=== PATIENT | male | born 1945 | race Caucasian/White ===

== ENCOUNTER 2016-08-23 11:08 | Inpatient (IN) ==
[2016-08-23] MEDS ORDERED: DILTIAZEM 25 MG/5 ML VIAL IV ONE (11:32)
[2016-08-23] MEDS ORDERED: DILTIAZEM 125 MG/25 ML VIAL IV ONE (11:37)
--- NOTE | 2016-08-23 11:42 | Emergency Department Note ---
SOB HPI - General Chief Complaint: Shortness of Breath/Dyspnea Stated Complaint: Shortness of breath Time Seen by Provider: 08/23/16 11:32 Source: patient Mode of arrival: ambulatory Limitations: no limitations - History of Present Illness Patient mainly felt palpitations the last 3 days, he states he hiked quite a bit. 3 days ago and his heart was racing. It. He is trying to sleep and his heart would not slow down. In fact, he felt palpitations for last 3 days in a row. States she's had tachycardia. Ever since was 17 years old, no chest pain per se a little bit shortness of breath this morning when he was trying to push a scaffolding up onto the roof. No fevers, no chills, no cough, no nausea, vomiting, no ankle swelling. His been well otherwise. MD Complaint: shortness of breath - Related Data Home Medications Medication Instructions Recorded Confirmed Aspirin [Adult Low Dose Aspirin EC] 81 mg PO DAILY 08/23/16 08/23/16 Allergies Allergy/AdvReac Type Severity Reaction Status Date / Time No Known Drug Allergies Allergy Verified 08/23/16 11:15 Review of Systems All systems ED: reviewed and negative except as stated. Constitutional: Denies: fever, chills Past Medical History - Past Medical History Source: nursing notes reviewed Medical history: Reports: atrial fibrillation, hypertension Family history: Reports: no significant family history - Social History smoking status: Never smoker Alcohol use: Reports: Rarely Drug use: Reports: none Physical Exam 70-year-old male, awake and alert, in no immediate distress, in fact, he is quite jovial, happy, denies chest pain, has had no shortness of breath, his O2 sats are fine and head and neck exam was normal exam his TMs are normal. Pupils equal, reactive. Neck is supple without JVD. Chest was clear breath sounds. Heart irregular rhythm and rate of between 140 and 150. Lungs are clear otherwise. Chest wall is nontender. Abdomen soft, nontender. Extremities with arthritic deformities but no ankle swelling and is moving all fours appropriately nourished neuro exam is grossly intact. Skin is normal. Color is good, his O2 sats are normal, mentation is appropriate. - General Limitations: no limitations General appearance: alert, in no apparent distress - Head Head exam: atraumatic, normocephalic - Eye Eye exam: Present: normal appearance, PERRL. Absent: scleral icterus - ENT ENT exam: normal exam, normal oropharynx, mucous membranes moist, TM's normal bilaterally Course Vital Signs Temperature 98 F 08/23/16 11:08 Pulse Rate 143 H 08/23/16 11:08 Respiratory Rate 20 08/23/16 11:08 Blood Pressure 146/121 08/23/16 11:08 Pulse Oximetry (%) 98 08/23/16 11:08 Temperature 98 F 08/23/16 11:08 Pulse Rate 74 08/23/16 13:14 Respiratory Rate 17 08/23/16 13:14 Blood Pressure 101/80 08/23/16 13:11 Pulse Oximetry (%) 100 08/23/16 13:14 Shortness of Breath/Dyspnea - [facility] Narrative Medical decision making narrative: Labs reviewed, his proBNP was markedly elevated, thus the shortness of breath. He was started on oxygen, his tachycardia treated with diltiazem and his rate did come down, but he was still tachycardic to 100 on the drip. Thus, he will be admitted for atrial flutter, RVR with CHF. Discussed with Dr. Carranza - Lab Data Lab results reviewed: Yes I reviewed the patient's lab results. Result diagrams: 08/23/16 11:48 08/23/16 11:48 Lab Results 08/23/16 08/23/16 08/23/16 Range/Units 11:48 11:48 11:48 WBC 6.4 (4.5-11.0) K/mcL RBC 4.37 L (4.50-5.90) M/mcL Hgb 14.4 (13.5-16.5) g/dL Hct 42.1 (41.0-55.0) % MCV 96.3 (80.0-100.0) fL MCH 33.0 (26.0-34.0) pg MCHC 34.2 (31.0-36.0) g/dL RDW 14.9 H (11.5-14.5) % Plt Count 275 (140-440) K/mcL MPV 9.0 (7.4-10.4) fL Gran % 79.7 H (38.0-78.0) % Lymph % (Auto) 16.4 (15.5-49.0) % Stone % (Auto) 3.0 (1.0-12.0) % Eos % (Auto) 0.2 (0.0-7.0) % Baso % (Auto) 0.7 (0.0-2.0) % Gran # 5.1 (1.8-8.0) K/mcL Lymph # 1.0 L (1.5-4.8) K/mcL Stone # 0.2 (0.1-0.9) K/mcL Eos # 0 (0.0-0.7) K/mcL Baso # 0 (0.0-0.3) K/mcL Sodium 130 L (133-145) mmol/L Potassium 4.1 (3.3-5.1) mmol/L Chloride 93 L (96-108) mmol/L Carbon Dioxide 20 L (22-30) mmol/L Anion Gap 17.0 H (8-16) BUN 19 (8-23) mg/dl Creatinine 1.1 (0.7-1.2) mg/dl GFR Calculation 67 Glucose 152 H (70-105) mg/dL Calcium 9.0 (8.6-10.4) mg/dl Total Bilirubin 1.7 H (0.0-1.0) mg/dL AST 27 (0-37) U/l ALT 28 (0-40) U/l Alkaline Phosphatase 71 (39-117) U/L Troponin T < 0.01 (0-0.03) ng/ml NT-Pro-B Natriuret Pep 9164.0 H (0-125) pg/ml Total Protein 7.6 (5.9-8.4) gm/dL Albumin 4.2 (3.2-5.2) gm/dL Globulin 3.4 (2.2-3.7) gm/dL Albumin/Globulin Ratio 1.2 (1.0-2.3) Disposition Clinical Impression: Tachycardia Disposition: Xfer As Inpt ([facility]) Condition: Good
[2016-08-23] MEDS ORDERED: DILTIAZEM 125 MG in 0.9 % SODIUM CHLORIDE 100 ML IV SCH (11:45)
[2016-08-23] MEDS ORDERED: ASPIRIN 81 MG TAB.CHEW ONE (12:03)
[2016-08-23] MEDS ORDERED: ASPIRIN 81 MG TAB.CHEW CHEWED ONE (12:06)
[2016-08-23] MEDS ORDERED: DILTIAZEM 180 MG CAP.XL.24H PO ONE (12:07)
[2016-08-23 12:13] LABS: Basophils # (Auto) 0 K/mcL (0.0-0.3); Basophils % (Auto) 0.7 % (0.0-2.0); Eosinophils # (Auto) 0 K/mcL (0.0-0.7); Eosinophils % (Auto) 0.2 % (0.0-7.0); Granulocytes % (Auto) 79.7 % (38.0-78.0); Lymphocytes % (Auto) 16.4 % (15.5-49.0); Mean Cell Volume 96.3 fL (80.0-100.0); Mean Corpuscular HGB Conc 34.2 g/dL (31.0-36.0); Monocytes # (Auto) 0.2 K/mcL (0.1-0.9); Platelet Count 275 K/mcL (140-440); RBC 4.37 M/mcL (4.50-5.90); Red Cell Distribution Width 14.9 % (11.5-14.5)
[2016-08-23 12:38] LABS: ALT/SGPT 28 U/l (0-40); Albumin 4.2 gm/dL (3.2-5.2); Albumin/Globulin Ratio 1.2 (1.0-2.3); Alkaline Phosphatase 71 U/L (39-117); Blood Urea Nitrogen 19 mg/dl (8-23)
--- NOTE | 2016-08-23 12:45 | XRay Report ---
HISTORY: Reason for Exam:palpitation FINDINGS: The heart is mildly enlarged. Curly B lines are present in the periphery of both lower lobes. The lungs are otherwise clear, without evidence of pneumonia. Tiny left-sided pleural effusion is noted. The congestive heart failure is less severe today than it was on 04/11/15. IMPRESSION: Congestive heart failure with interstitial pulmonary edema Interpreted and Authenticated by: Manny Corona 08/23/16
[2016-08-23] MEDS ORDERED: DIGOXIN 500 MCG/2 ML AMPUL IV ONE (13:49)
--- NOTE | 2016-08-23 14:06 | Internal Med History&Physical ---
Medical - H&P: HPI Patient information: Note initiated : 08/23/16 at 2:04 pm Patient: Wilfrido Govea 70 y/o M admitted on for Shortness of breath. History of present illness: Mr. Govea is a 70 year old male who was admitted herein March 2015, with new onset congestive heart failure. Prior to that he had not seen a doctor and approximately 50 years. He did follow up once with Dr. Ruelas, and perhaps also a picture framer, and was started on medications. He says he took them for 3 months and they ran out, and he never heard from the doctors, so he just stopped everything. 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 A week or 2 ago he says he may have had some chest discomfort, but is really not very specific about that. And then he said he started to notice that he was having trouble breathing about 3 days ago. He has experienced significant paroxysmal nocturnal dyspnea every night for the last 3 nights, so presented to the emergency room today for evaluation. Otherwise,he has not had any chest pain in the last few days. He denies any ankle swelling or excess salt intake. He does not smoke and drinks alcohol only occasionally. He otherwise denies recent fever or chills, headaches or dizziness,new eye symptoms sore throat or cough. His right ear has felt a little plugged up, but no other ear symptoms. He denies neck pain or swollen glands. He denies abdominal pain, nausea or vomiting, diarrhea or constipation or bright red blood per rectum. He does have some urinary frequency. Medical History Psoriasis (Chronic) Hypertension Tachycardia CHF (congestive heart failure) --ejection fraction 25% Atrial fibrillation Heart failure with acute decompensation, type unknown aDHD? Type 2 diabetes? patient denies. Medications: aspirin 81 mg daily. Occasional vitamins, occasional cold medicine if he has a cold. None recently. (Medications prescribed last year; aspirin 81 mg chewable tablet 81 mg CHEWED DAILY furosemide 20 mg tablet 20 mg PO DAILY lisinopril 2.5 mg tablet 2.5 mg PO DAILY loratadine 10 mg tablet 10 mg PO DAILYP PRN metoprolol succinate ER 50 mg tablet,extended release 24 hr 50 mg PO DAILY potassium chloride ER 10 mEq capsule,extended release 10 mEq PO DAILY simvastatin 20 mg tablet 20 mg PO DAILY methotrexate?) Allergies/Adverse Reactions No Known Drug Allergies Allergy Family history: sister had ovarian cancer. Uncle of DC at age 40. the patient is unaware of most of his family's history. Social history: he patient has led a very active life, and often hikes and fishes. he smoked less than one pack per day from the age of 11 to about the age of 19 and has not smoked since. He drinks approximately 4 glasses of wine per month. He previously smoked marijuana occasionally, but says he quit more than a year ago. He lives alone. He has a son who lives in [place]. There is a yebrdiy-gb-ydi named Todd Hernadez, lives here in [facility]. He would like his sbdrjfx-rq-odz to be his medical power of trial attorney but does not have anything in writing. He would accept initial resuscitation if needed, but does not want any sort of long-term life support. he previously worked as a transportation equipment painter One daughter lives in [place]. He is from his . Medical - H&P: Meds Home Medications Medication Instructions Recorded Confirmed Type Aspirin [Adult Low Dose Aspirin EC] 81 mg PO DAILY 08/23/16 08/23/16 History Allergies Allergy/AdvReac Type Severity Reaction Status Date / Time No Known Drug Allergies Allergy Verified 08/23/16 11:15 Medical - H&P: Exam - Constitutional Vitals: Temp Pulse Resp BP Pulse Ox 98 F 74 17 101/80 100 08/23/16 11:08 08/23/16 13:14 08/23/16 13:14 08/23/16 13:11 08/23/16 13:14 on exam, he is a well-developed well-nourished, very fit appearing, white male who appears younger than his stated age. He is in no acute distress. head: Normocephalic, atraumatic. eyes: Pupils -PERRLA, EOMI, anicteric. Ears: There is moderatecerumen in the right ear canal, left TM and canal are clear. Pharynx: Pharynx is clear. Teeth are in good repair. Neck: Is supple. There is no obvious JVD, but there isnoticeablehepatojugular refluxwith compression of the liver. No bruits, thyromegaly, lymphadenopathy or noted. Cardiac exam:Shows an irregularly irregular rhythm, with a very fast rate. No definite murmurs, rubs, gallops are noted. Lungs: He has fine crackles noted about one third of the way up in both lung childers. There is no wheezing or rhonchi heard. There is no sensory muscle use. Abdomen: Soft and nontender, without obvious masses. Bowel sounds are active. Extremities: Show no cyanosis, clubbing, edema. Pulses are intact. Neurologic: Exam is grossly nonfocal. Patient is alert and oriented, cooperative. He is very talkative Skin exam: Shows no rashes or other worrisome lesions. Medical - H&P: Reslt - Labs CBC & Chem 7: 08/23/16 11:48 08/23/16 11:48 Labs: Short CBC 08/23/16 Range/Units 11:48 WBC 6.4 (4.5-11.0) K/mcL Hgb 14.4 (13.5-16.5) g/dL Hct 42.1 (41.0-55.0) % Plt Count 275 (140-440) K/mcL BMP 08/23/16 11:48 Sodium 130 L Potassium 4.1 Chloride 93 L Carbon Dioxide 20 L BUN 19 Creatinine 1.1 Glucose 152 H Calcium 9.0 Cardiac Enzymes 08/23/16 Range/Units 11:48 Troponin T < 0.01 (0-0.03) ng/ml Liver Function 08/23/16 Range/Units 11:48 Total Bilirubin 1.7 H (0.0-1.0) mg/dL AST 27 (0-37) U/l ALT 28 (0-40) U/l Alkaline Phosphatase 71 (39-117) U/L Albumin 4.2 (3.2-5.2) gm/dL RDW is elevated at 14.9, differential shows 79% granulocytes, absolute lymphocyte count is low at 1000 BNP is elevated at 9164 chest x-ray: Shows mild cardiomegaly Cristobal B line's. Small left-sided pleural effusion. Congestive heart failure is evident, though apparently less severe than in March 2015. eKG: Shows a rapid narrow complex tachycardia at a rate of about 150 presumably atrial flutter with 2 to one block. LVH is present. There is minor ST depression noted in leads V5 V6. April 11, 2015: Echocardiogram: Moderate aortic calcification. Mild left ventricular enlargement with severe global systolic dysfunction, mitral regurgitation, moderate left atrial enlargement elevated pulmonary wedge pressure moderate right atrial enlargement. Estimated ejection fraction 25%. Medical - H&P: A/P (1) Hyponatremia Current visit: Yes Status: Acute (2) Atrial flutter Current visit: No Status: Acute (3) Hypertension Current visit: No Status: Chronic (4) CHF (congestive heart failure) Current visit: No Status: Acute (5) Heart failure with acute decompensation, type unknown Current visit: No Status: Acute - Narrative A/P Narrative: #1. Cardiac. -patient presents with atrial fibrillation/flutter with rapid ventricular response, and is also clinically in congestive heart failure. The onset of this is a little unclear as the patient is a rather vague historian. unfortunately he had a similar presentation in March 2015, and was put on appropriate medications, but discontinued them after 3 months. He said he never understood that he was supposed to follow up with a doctor, and therefore did not continue treatment. -Diurese with IV Lasix. Monitor electrolytes closely. -IV diltiazem drip. Load with digoxin. -Echocardiogram. -I expect he should be started on a beta lisandra, STUART inhibitor, possibly Aldactone and/or Lasix. -He may need to be anticoagulated as well -Check TSH. -Check follow-up troponin. -If rhythm fails to respond consider amiodarone. -Oxygen when necessary.-Patient declines Jain catheter. Monitor I's and O's closely. Daily weights. -Consider d-dimer, although this patient is extraordinarily physically active, and should be low risk for PE. -He will need cardiology follow-up. At his last hospitalization, it was suggested that he may need long-term anticoagulation therapy as well as an AICD due to a severely depressed ejection fraction. We have sent for his cardiology consult, and are awaiting the arrival of those. #2. CODE STATUS: The patient does not have a living will, but it sounds like he would accept initial resuscitation, but once no long-term life support. He would like his medical power of trial attorney to be his reubwgn-cu-bjq, Todd Hernadez. #3. DVT prophylaxis: Subcutaneous heparin. #4. Hyponatremia. -This is likely dilutional. Continue to monitor. #5. Hypertension. Monitor this as we rearrange his medications. #6. Possible history of psoriasis. This does not appear to be currently active. This visit is taken approximately 70 minutes, to review the patient's old records, review current test results, review his case with the ER M.DTerrie, interview and examine him, and write orders. He has been admitted to the ICU, and will require close monitoring of his heart rhythm and other vital signs, while we attempt to treat his heart failure and abnormal heart rhythm. I also hope to review cardiology records from last year, once those arrive.
[2016-08-23] MEDS ORDERED: NITROGLYCERIN 0.4 MG TAB.SUBL SL PRN (15:25)
[2016-08-23] MEDS ORDERED: ONDANSETRON 4 MG/2 ML VIAL IV PRN (15:25)
[2016-08-23] MEDS ORDERED: ALBUTEROL SULFATE 2.5 MG/3 ML NEBULIZER NEB PRN (15:25)
[2016-08-23] MEDS ORDERED: DOCUSATE SODIUM 100 MG CAPSULE PO PRN (15:25)
[2016-08-23] MEDS ORDERED: MAGNESIUM HYDROXIDE 30 ML ORAL.SUSP PO PRN (15:25)
[2016-08-23] MEDS: DILTIAZEM 125 MG in 0.9 % SODIUM CHLORIDE 100 ML IV SCH (16:30)
[2016-08-23] MEDS: 0.9 % SODIUM CHLORIDE 10 ML SYRINGE IV SCH ×2 (16:31→23:48)
[2016-08-23 17:52] LABS: ALT/SGPT 26 U/l (0-40); Albumin/Globulin Ratio 1.3 (1.0-2.3); Alkaline Phosphatase 67 U/L (39-117); Bilirubin,Direct 0.2 mg/dL (0.0-0.3); Blood Urea Nitrogen 16 mg/dl (8-23); Gamma Glutamyl Transpeptidase 37 U/L (8-61); Magnesium 1.9 mg/dL (1.6-2.5); Uric Acid 4.7 mg/dL (2.5-8.0)
[2016-08-23] MEDS ORDERED: FUROSEMIDE 20 MG/2 ML VIAL IV PRN (20:29)
[2016-08-23] MEDS: DIGOXIN 500 MCG/2 ML AMPUL IV SCH (23:48)
[2016-08-23] MEDS: METOPROLOL SUCCINATE 25 MG TAB.XL.24H PO SCH (23:49)
[2016-08-24] MEDS: DIGOXIN 500 MCG/2 ML AMPUL IV SCH (04:54)
[2016-08-24] MEDS: DILTIAZEM 125 MG in 0.9 % SODIUM CHLORIDE 100 ML IV SCH (04:55)
[2016-08-24 06:25] LABS: Basophils # (Auto) 0.1 K/mcL (0.0-0.3); Basophils % (Auto) 1.1 % (0.0-2.0); Eosinophils # (Auto) 0.1 K/mcL (0.0-0.7); Eosinophils % (Auto) 2.1 % (0.0-7.0); Granulocytes % (Auto) 63.6 % (38.0-78.0); Lymphocytes # (Auto) 1.2 K/mcL (1.5-4.8); Mean Cell Volume 96.7 fL (80.0-100.0); Mean Corpuscular HGB Conc 34.8 g/dL (31.0-36.0); Mean Corpuscular Hemoglobin 33.6 pg (26.0-34.0); Monocytes # (Auto) 0.4 K/mcL (0.1-0.9); Monocytes % (Auto) 8.2 % (1.0-12.0); Platelet Count 262 K/mcL (140-440); RBC 4.19 M/mcL (4.50-5.90); Red Cell Distribution Width 14.6 % (11.5-14.5)
[2016-08-24 06:34] LABS: ALT/SGPT 23 U/l (0-40); Albumin 3.9 gm/dL (3.2-5.2); Albumin/Globulin Ratio 1.5 (1.0-2.3); Alkaline Phosphatase 61 U/L (39-117); Bilirubin,Direct 0.3 mg/dL (0.0-0.3); Blood Urea Nitrogen 15 mg/dl (8-23); Gamma Glutamyl Transpeptidase 35 U/L (8-61); Magnesium 2.1 mg/dL (1.6-2.5); Uric Acid 5.3 mg/dL (2.5-8.0)
[2016-08-24 06:35] LABS: HDL Cholesterol 48 mg/dl (>40); LDL Cholesterol,Calculated 120 mg/dl (SEE CHART)
[2016-08-24] MEDS ORDERED: FUROSEMIDE 20 MG/2 ML VIAL IV SCH (08:00)
[2016-08-24] MEDS: METOPROLOL SUCCINATE 25 MG TAB.XL.24H PO SCH ×2 (08:21→21:52)
[2016-08-24] MEDS: 0.9 % SODIUM CHLORIDE 10 ML SYRINGE IV SCH ×3 (08:21→21:51)
[2016-08-24] MEDS ORDERED: ENOXAPARIN 40 MG/0.4 ML SYRINGE SQ SCH (09:00)
[2016-08-24] MEDS ORDERED: LISINOPRIL 5 MG TABLET PO SCH (09:00)
[2016-08-24] MEDS ORDERED: ASPIRIN 81 MG TAB.CHEW CHEWED SCH (09:00)
--- NOTE | 2016-08-24 10:08 | Echocardiogram Report ---
ECHOCARDIOGRAM: 2-D and M-mode echocardiography with cardiac Doppler and color flow imaging were performed with a [employer] Aplio MX. Indication is recurrent atrial flutter/heart failure. Overall size of the RA, RV, and aortic root appeared normal. The LA appeared moderately enlarged and the LV appeared bpecim-az-ckxocpwkac enlarged. LV wall thickness appeared mildly increased. Systolic performance appeared severely and globally depressed. Estimated ejection fraction is 20-25%. There was no evidence for mural thrombi. The aortic valve appeared trileaflet. Bmpsv-kk-ehxblccq leaflet calcification was present. Valve opening appeared adequate and there was no evidence for aortic stenosis or aortic regurgitation by Doppler interrogation. The mitral and tricuspid valves appeared unremarkable. Doppler interrogation of LV inflow disclosed the so-called restrictive pattern as can be seen with heart failure. Mitral regurgitation, probably rbzargxn-sw-nyzqmfutyi severe (2-3+), was noted. Pulmonary venous interrogation disclosed ''D'' wave dominance indicating elevated pulmonary wedge pressure. The pulmonic valve showed absent " wave in the absence of AV synchrony. Pulmonary artery acceleration time appeared normal. There was no evidence for pulmonic stenosis. Pulmonic regurgitation, probably trivial, and tricuspid regurgitation, probably mild (1+), were noted. No intracardiac shunting was appreciated. There was no evidence for pericardial effusion. The IVC was dilated and did not vary with the respiratory cycle indicating raise CVP. Calculated estimate of PA systolic pressure is moderately elevated at 50 mmHg. Atrial fibrillation with a moderate response was present. CONCLUSION: Zaol-wy-nfcxoqzm LV enlargement with mild concentric hypertrophy and severe global systolic dysfunction. 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 Since previous study 04/12/2015 there is probable modest further decline in cardiac performance. (See accompanying M-mode and Doppler reports for quantitation.) ECHOCARDIOGRAPHY M-MODE CALCULATIONS: HT: 69'' WT: 170 BSA: 1.93 m2 NORMALS AORTA: AORTIC ROOT 3.3 2.0-3.7 cm LEFT ATRIUM 5.0 1.9-4.0 cm MITRAL VALVE: EXCURSION 1.8 1.9-2.7 cm EPSS 1.3 <0.5 cm LT VENTRICLE: LVID (ED) 6.0 3.5-5.7 cm LVID (ES) 4.7 SEPTAL THICKNESS 1.3 0.6-1.1 cm SEPTAL EXCURSION 0.4 0.3-0.8 cm LVPW THICKNESS 1.3 0.6-1.1 cm LVPW EXCURSION 1.2 0.9-1.4 cm MINOR AXIS FS 22 25%-40% RT VENTRICLE: RVID (ED) 1.3 0.9-2.6 cm(up to 3cm if LLD) QUALITATIVE DOPPLER FLOW STUDIES MITRAL VALVE MR, probably pkeardqv-bn-zocgygrbcy severe (2-3+). AORTIC VALVE -- TRICUSPID VALVE TR, probably mild (1+). PULMONIC VALVE MA, probably trivial. QUANTITATIVE DOPPLER FLOW STUDIES SAMPLE SITES VELOCITIES PEAK PRESSURE VALVE AREA and/or VALVE WINDOW (PEAK,M/SEC) DROP (GRADIENT) PRESSURE HALF-TIME MV (Diastole) 1.5 (E) - (A) MV (Systole) 5.0 AO (Diastole) -- AO (Systole) 1.7 TV (Systole) 2.7 PV (Systole) 0.8 PV (Diastole) 2.2 SAYRA:cee Job ID: [id number] Doc ID: [id number] Hernandez Ma MD
--- NOTE | 2016-08-24 10:29 | Internal Med Progress Note ---
Medical - PN: Subj Patient information: Note initiated : 08/24/16 at 10:20 am Patient: Wilfrido Govea 70 y/o M admitted on 08/23/16 for Shortness of Breath/ Tachycardia. Interval history: August 23, 2016: History of present illness: Mr. Govea is a 70 year old male who was admitted herein March 2015, with new onset congestive heart failure. Prior to that he had not seen a doctor and approximately 50 years. He did follow up once with Dr. Ruelas, and perhaps also a room manager, and was started on medications. He says he took them for 3 months and they ran out, and he never heard from the doctors, so he just stopped everything. 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 A week or 2 ago he says he may have had some chest discomfort, but is really not very specific about that. And then he said he started to notice that he was having trouble breathing about 3 days ago. He has experienced significant paroxysmal nocturnal dyspnea every night for the last 3 nights, so presented to the emergency room today for evaluation. Otherwise,he has not had any chest pain in the last few days. He denies any ankle swelling or excess salt intake. He does not smoke and drinks alcohol only occasionally. He otherwise denies recent fever or chills, headaches or dizziness,new eye symptoms sore throat or cough. His right ear has felt a little plugged up, but no other ear symptoms. He denies neck pain or swollen glands. He denies abdominal pain, nausea or vomiting, diarrhea or constipation or bright red blood per rectum. He does have some urinary frequency. August 24, 2016: overnight, the patient became quite bradycardic and also somewhat hypotensive. Digoxin load was discontinued. IV diltiazem drip was discontinued Unfortunately he had also received a long-acting form of diltiazem in the emergency room. heart rates have come up into the more normal range this morning, but he does continue in atrial flutter with variable block. He has diuresed over 3 L overnight. He is feeling much less short of breath today. He again today states that he saw the room manager once last year, took medications for 3 months, and then did not refill them or return to the doctor when they ran out. He says one of the medicines he was on really disrupted his sleep. We did obtain records from Dr. Morris at [facility]. he was seen on June 24, 2015: It would appear he had been started on prednisone and methotrexate around that same time,and prednisone was likely the cause of his sleep disturbance. ejection fraction at that time was 25%.. He was started on Eliquis 5 mg twice a day, lisinopril 20 mg daily, metoprolol ER 100 mg daily, aspirin 81 mg daily, Zocor 20 mg daily he was also started on amiodarone 400 mg twice a day. Also diltiazem ER 240 mg daily was added; he apparently was considered for cardioversion, to be considered after 6 weeks on the Eliquis. He was to have a follow-up echocardiogram in 6 weeks to assess change in LV function. It appears he never had follow-up after that visit. otherwise, today, he has no complaints. He denies subjective fever or chills, sore throat or cough, chest pain or palpitations, shortness of breath, abdominal pain, nausea or vomiting, diarrhea or constipation or dysuria. - Constitutional Vitals: Vital Signs Temp Pulse Resp BP Pulse Ox 97.8 F 62 19 148/104 98 08/24/16 04:01 08/24/16 10:17 08/24/16 10:17 08/24/16 10:08/24/16 10:17 Period Temp Pulse Resp BP Sys/Holley Pulse Ox Last 24 Hr 97.8 F-98.2 F 32-91 12-22 91-149/59-114 92-100 Intake and Output 08/23/16 08/24/16 08/24/16 21:59 05:59 13:59 Intake Total 750 / 750 240 / 240 Output Total 1500 / 1500 2800 / 2800 Balance -750 / -750 -2800 / -2800 240 / 240 Weight 165 lb 14.4 oz Intake & Output: Intake & Output 08/23/16 08/24/16 08/24/16 21:59 05:59 13:59 Intake Total 750 / 750 240 / 240 Output Total 1500 / 1500 2800 / 2800 Balance -750 / -750 -2800 / -2800 240 / 240 Weight 165 lb 14.4 oz Intake: Oral 750 / 750 240 / 240 Output: Void Amount 1500 / 1500 2800 / 2800 Other: Meal Dinner Breakfast Percent of Meal Consumed 100% 100% on exam, he is still a very alert , jovial, white male, who appears younger than his stated age. he is sitting up on the side of his bed, eating breakfast. Neck is supple without obvious JVD. Cardiac exam shows an irregularly irregular rhythm, with a rate of about 90. On the finish saw operator he clearly has a flutter with variable block. Heart rate seemed to range from 50 to as high as 120, depending on whether he is sitting still, or talking in a very animated way. lungs:Have just a few crackles at the bases, and otherwise clear Abdomen is soft and nontender. Extremities show no edema. Neurologic exam is grossly nonfocal. Medical - PN: Obj Da - Labs CBC & Chem 7: 08/24/16 03:50 08/24/16 03:50 Labs: Abnormal Lab Results 08/24/16 08/24/16 08/24/16 03:50 03:50 03:50 RBC 4.19 L Hct 40.5 L RDW 14.6 H Lymph # 1.2 L Carbon Dioxide 19 L Anion Gap 17.0 H Total Bilirubin 1.9 H LDL Cholesterol, Calc 120 H Non-HDL Cholesterol 133 H 08/23/16 16:02 RBC Hct RDW Lymph # Carbon Dioxide 20 L Anion Gap Total Bilirubin 1.6 H LDL Cholesterol, Calc Non-HDL Cholesterol August 24: -Heart rate is varying from 30 to 124. blood pressures veering from 108-148/94 -104. O2 saturations 95-100% on room air. he is diuresed about 3600 mL since admission. -rDW remains elevated at 14.6. Lymphopenia is improved with an absolute lymphocyte count of 1200. anion gap remains elevated at 17 CO2 is low at 19. Total bilirubin high at 1.9 total cholesterol is 181, LDL cholesterol 120 HDL 48 echocardiogram from last night: Mild to moderate LV enlargement with concentric hypertrophy and severe global systolic dysfunction. moderate mitral regurgitation, moderate left atrial enlargement, elevated pulmonary wedge pressure with passive pulmonary hypertension. there is modest decline in LV function since March 2015. estimated LVEF is 20- 25%. august 23: RDW is elevated at 14.9, differential shows 79% granulocytes, absolute lymphocyte count is low at 1000 BNP is elevated at 9164 troponin was normal 2 TSH is mildly elevated at 3.67 MRSA nasal screen is negative. chest x-ray: Shows mild cardiomegaly Cristobal B line's. Small left-sided pleural effusion. Congestive heart failure is evident, though apparently less severe than in March 2015. eKG: Shows a rapid narrow complex tachycardia at a rate of about 150 presumably atrial flutter with 2 to one block. LVH is present. There is minor ST depression noted in leads V5 V6. April 11, 2015: Echocardiogram: Moderate aortic calcification. Mild left ventricular enlargement with severe global systolic dysfunction, mitral regurgitation, moderate left atrial enlargement elevated pulmonary wedge pressure moderate right atrial enlargement. Estimated ejection fraction 25%. Meds: Medications Albuterol Sulfate (Ventolin) 2.5 mg NEB Q4HRT PRN PRN Reason: Shortness Of Breath Or Wheezing Aspirin (Aspirin) 81 mg CHEWED DAILY [facility] [place] Last Admin: 08/24/16 08:28 Dose: 81 mg Docusate Sodium (Colace) 100 mg PO BIDP PRN PRN Reason: Constipation Enoxaparin Sodium (Lovenox) 40 mg SQ DAILY [facility] [place] Last Admin: 08/24/16 08:23 Dose: 40 mg Furosemide (Lasix) 20 mg IV BIDD [facility] Last Admin: 08/24/16 08:21 Dose: 20 mg Furosemide (Lasix) 20 mg IV ONCE PRN PRN Reason: diuresis Last Admin: 08/23/16 23:23 Dose: 20 mg Diltiazem HCl 125 mg/ Sodium (Chloride) 125 mls @ 5 mls/hr IV Q12H [facility] [place]; 5 MG/HR PRN Reason: Protocol Last Admin: 08/24/16 04:55 Dose: Not Given Lisinopril (Zestril) 2.5 mg PO DAILY [facility] [place] Last Admin: 08/24/16 08:22 Dose: 2.5 mg Magnesium Hydroxide (Milk Of Magnesia) 30 ml PO DAILYP PRN PRN Reason: Constipation Metoprolol Succinate (Toprol Xl) 12.5 mg PO BID [facility] Last Admin: 08/24/16 08:21 Dose: 12.5 mg Nitroglycerin (Nitrostat) 0.4 mg SL Q5M PRN PRN Reason: Chest Pain Ondansetron HCl (Zofran) 4 mg IV Q4-6HP PRN PRN Reason: Nausea And Vomiting Sodium Chloride (Saline Flush) 10 ml IV Q8 JAUN Last Admin: 08/24/16 08:21 Dose: 10 ml Medical - PN: A/P - Time Spent With Patient Total time spent is greater than 50% in coordination of care (as documented) at patient's floor/unit and/or counseling patient: (1) Hyponatremia Status: Acute Current Visit: Yes (2) Atrial flutter Status: Acute Current Visit: No (3) Hypertension Status: Chronic Current Visit: No (4) CHF (congestive heart failure) Status: Acute Current Visit: No (5) Heart failure with acute decompensation, type unknown Status: Acute Current Visit: No - Narrative A/P Narrative: #1. Cardiac. -patient presents with atrial fibrillation/flutter with rapid ventricular response, and is also clinically in congestive heart failure. this patient presented with severe congestive heart failure and atrial flutter last year. He was started on appropriate medications, but was never documented to come out of the atrial flutter, and then was lost to follow-up. -after review of the cardiology notes,I willresume previous medicationsof Eliquis, amiodarone if tolerated, lisinopril, atorvastatin. We will also add Aldactone. -The patient is firmly reminded that he absolutely needs to keep follow-up appointments and not stop medications without a doctor telling him to do so. he seems agreeable to giving this a try. -Continue IV Lasix for now. -digoxin and diltiazem are on hold regarding bradycardia. -Oxygen when necessary.-Patient declines Jain catheter. Monitor I's and O's closely. Daily weights. . -He will need cardiology follow-up. At his last hospitalization, it was suggested that he may need long-term anticoagulation therapy as well as an AICD due to a severely depressed ejection fraction. -he should have cardiology follow-up preferably with Dr. Morris at [facility]. #2. CODE STATUS: The patient does not have a living will, but it sounds like he would accept initial resuscitation, but once no long-term life support. He would like his medical power of litigation attorney associate to be his [id number], Todd Hernadez. #3. DVT prophylaxis: Subcutaneous heparin. #4. Hyponatremia. -improved with diuresis. #5. Hypertension. Monitor this as we rearrange his medications. #6. Possible history of psoriasis. This does not appear to be currently active. #7. Hematologic. Mild lymphopenia, improving. elevated RDW. Consider B12 or folate deficiency. #8. Reported history of ADD. #9.old records suggest history of diabetes but patient denies this, and blood glucoses are essentially normal. this visit has taken approximately 35 minutes of far today, to review test results, review his old records from cardiology described above, review plan of care with the patient as well as with nursing staff, interview and examine him, and write orders. Medical - PN: Qual - VTE Deep Vein Thrombosis/Pulmonary Embolism Present on Admission: No
[2016-08-24] MEDS ORDERED: NITROGLYCERIN 0.4 MG TAB.SUBL SL PRN (12:20)
[2016-08-24] MEDS ORDERED: ALBUTEROL SULFATE 2.5 MG/3 ML NEBULIZER NEB PRN (12:20)
[2016-08-24] MEDS ORDERED: MAGNESIUM HYDROXIDE 30 ML ORAL.SUSP PO PRN (12:20)
[2016-08-24] MEDS ORDERED: DOCUSATE SODIUM 100 MG CAPSULE PO PRN (12:20)
[2016-08-24] MEDS ORDERED: ONDANSETRON 4 MG/2 ML VIAL IV PRN (12:20)
[2016-08-24] MEDS: AMIODARONE HCL 200 MG TABLET PO SCH (18:06)
[2016-08-24] MEDS ORDERED: ATORVASTATIN 20 MG TABLET PO SCH (21:00)
[2016-08-24] MEDS: APIXABAN 5 MG TABLET PO SCH (21:52)
[2016-08-25] MEDS: 0.9 % SODIUM CHLORIDE 10 ML SYRINGE IV SCH (05:19)
[2016-08-25 05:55] LABS: Basophils # (Auto) 0.1 K/mcL (0.0-0.3); Eosinophils # (Auto) 0.1 K/mcL (0.0-0.7); Eosinophils % (Auto) 2.6 % (0.0-7.0); Lymphocytes # (Auto) 1.2 K/mcL (1.5-4.8); Lymphocytes % (Auto) 21.9 % (15.5-49.0); Mean Cell Volume 94.8 fL (80.0-100.0); Mean Corpuscular HGB Conc 35.6 g/dL (31.0-36.0); Mean Corpuscular Hemoglobin 33.8 pg (26.0-34.0); Monocytes # (Auto) 0.4 K/mcL (0.1-0.9); Monocytes % (Auto) 7.5 % (1.0-12.0); Platelet Count 241 K/mcL (140-440); RBC 4.36 M/mcL (4.50-5.90); Red Cell Distribution Width 13.4 % (11.5-14.5)
[2016-08-25] MEDS: AMIODARONE HCL 200 MG TABLET PO SCH (06:33)
[2016-08-25 06:37] LABS: ALT/SGPT 19 U/l (0-40); Albumin 3.9 gm/dL (3.2-5.2); Albumin/Globulin Ratio 1.5 (1.0-2.3); Alkaline Phosphatase 62 U/L (39-117); Bilirubin,Direct 0.2 mg/dL (0.0-0.3); Blood Urea Nitrogen 21 mg/dl (8-23); Gamma Glutamyl Transpeptidase 37 U/L (8-61); Magnesium 2.1 mg/dL (1.6-2.5); Uric Acid 5.7 mg/dL (2.5-8.0)
[2016-08-25] MEDS: APIXABAN 5 MG TABLET PO SCH (08:14)
[2016-08-25] MEDS: METOPROLOL SUCCINATE 25 MG TAB.XL.24H PO SCH (08:14)
[2016-08-25] MEDS ORDERED: FUROSEMIDE 20 MG/2 ML VIAL IV SCH (09:00)
[2016-08-25] MEDS ORDERED: ASPIRIN 81 MG TAB.CHEW CHEWED SCH (09:00)
[2016-08-25] MEDS ORDERED: LISINOPRIL 5 MG TABLET PO SCH (09:00)
--- NOTE | 2016-08-25 12:01 | Discharge Summary ---
Medical - DS: Prov Patient information: Note initiated : 08/25/16 at 12:01 pm Patient: Wilfrido Govea 70 y/o M admitted on 08/23/16 for Shortness of Breath/ Tachycardia. CHF. Date of admission: 08/23/16 15:15 Discharge date: 08/25/16 Primary care physician: none. he did see Dr. Saul Ruelas for one visit about one year ago. Admitting clinician: Reena Gooden Attending physician on discharge: Reena Gooden Medical - DS: Meds - Discharge Medications Prescriptions: Warfarin [Coumadin] 5 mg PO QHS #30 tablet Amiodarone HCl [Cordarone] 200 mg PO BIDCC #60 tablet Aspirin 81 mg CHEWED DAILY #1 Atorvastatin [Lipitor] 10 mg PO HS #30 tablet Lisinopril [Zestril] 2.5 mg PO DAILY #30 tablet Metoprolol Succinate [Toprol Xl] 25 mg PO DAILY #30 Spironolactone [Aldactone] 25 mg PO DAILY #30 tablet Active and Home Medications: Home Medications Aspirin [Adult Low Dose Aspirin EC] 81 mg PO DAILY 08/23/16 [History Confirmed 08/23/16 Last Taken 08/23/16] Medical - DS: Hosp Hospital course: Mr. Govea is a 70 year old male August 23, 2016: History of present illness: Mr. Govea is a 70 year old male who was admitted herein March 2015, with new onset congestive heart failure. Prior to that he had not seen a doctor and approximately 50 years. He did follow up once with Dr. Ruelas, and perhaps also a news library director, and was started on medications. He says he took them for 3 months and they ran out, and he never heard from the doctors, so he just stopped everything. 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 A week or 2 ago he says he may have had some chest discomfort, but is really not very specific about that. And then he said he started to notice that he was having trouble breathing about 3 days ago. He has experienced significant paroxysmal nocturnal dyspnea every night for the last 3 nights, so presented to the emergency room today for evaluation. Otherwise,he has not had any chest pain in the last few days. He denies any ankle swelling or excess salt intake. He does not smoke and drinks alcohol only occasionally. He otherwise denies recent fever or chills, headaches or dizziness,new eye symptoms sore throat or cough. His right ear has felt a little plugged up, but no other ear symptoms. He denies neck pain or swollen glands. He denies abdominal pain, nausea or vomiting, diarrhea or constipation or bright red blood per rectum. He does have some urinary frequency. August 24, 2016: overnight, the patient became quite bradycardic and also somewhat hypotensive. Digoxin load was discontinued. IV diltiazem drip was discontinued Unfortunately he had also received a long-acting form of diltiazem in the emergency room. heart rates have come up into the more normal range this morning, but he does continue in atrial flutter with variable block. He has diuresed over 3 L overnight. He is feeling much less short of breath today. He again today states that he saw the news library director once last year, took medications for 3 months, and then did not refill them or return to the doctor when they ran out. He says one of the medicines he was on really disrupted his sleep. We did obtain records from Dr. Morris at [facility]. he was seen on June 24, 2015: It would appear he had been started on prednisone and methotrexate around that same time,and prednisone was likely the cause of his sleep disturbance. ejection fraction at that time was 25%.. He was started on Eliquis 5 mg twice a day, lisinopril 20 mg daily, metoprolol ER 100 mg daily, aspirin 81 mg daily, Zocor 20 mg daily he was also started on amiodarone 400 mg twice a day. Also diltiazem ER 240 mg daily was added; he apparently was considered for cardioversion, to be considered after 6 weeks on the Eliquis. He was to have a follow-up echocardiogram in 6 weeks to assess change in LV function. It appears he never had follow-up after that visit. otherwise, today, he has no complaints. He denies subjective fever or chills, sore throat or cough, chest pain or palpitations, shortness of breath, abdominal pain, nausea or vomiting, diarrhea or constipation or dysuria. August 25, 2016 :Hospital course: the patient had a good night overnight. heart rates have generally ranged from 85-120. This morning he was at a rate of 70, with a rhythm of atrial flutter with variable block, at rest. When he got up to take a shower his heart rate bumped up to about 160. He denied any symptoms such as chest pain or shortness of breath or lightheadedness. he is quite adamant that he needs to leave today. He has work to do, and wants to be paid before the weekend. we discussed that he probably needs to remain on anticoagulation therapy. Unfortunately, he has no prescription drug coverage. I had restarted the Eliquis that the news library director had prescribed last year, but the patient really cannot afford this. We will therefore plan on starting him on Coumadin today, and have him come back in 2 days to check his INR. We are trying to arrange follow-up with a new PCP for early next week, to continue Coumadin monitoring. he'll also need to see Dr. Morris of cardiology, at [facility]. His heart rhythm and echocardiogram to be reviewed, so he can make further recommendations. otherwise, the patient says he is feeling quite well. He denies subjective fever or chills, headaches or dizziness, chest pain or palpitations, shortness of breath or PND,abdominal pain, nausea or vomiting, diarrhea or constipation, dysuria. on exam, he is still a very alert , jovial, white male, who appears younger than his stated age.he is working on a crossword puzzle when I entered the room.. Neck is supple without obvious JVD. Cardiac exam shows an irregularly irregular rhythm, with a rate of about 80. S1 and S2 appear fairly normal. 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 Heart rate seemed to range from 70 to as high as 120, depending on whether he is sitting still, or talking in a very animated way. lungs:clear to auscultation. Abdomen is soft and nontender. Extremities show no edema. Neurologic exam is grossly nonfocal. Assessment and plan: #1. Cardiac. -patient presents with atrial fibrillation/flutter with rapid ventricular response, and was also clinically in congestive heart failure. (this patient alsopresented with severe congestive heart failure and atrial flutter last year. He was started on appropriate medications, but was never documented to come out of the atrial flutter, and then was lost to follow-up.) -The patient was started on amiodarone, ToprolXL, Eliquis lisinopril, atorvastatin, and Lasix. in the emergency room he was initially also started on IV and oral diltiazem. He became quite bradycardic and hypotensive after that, so diltiazem was discontinued. He appears to be euvolemic today, and Marques not convinced that he will need Lasix long-term. He is very physically active, and tends to work outdoors a lot, and I would be concerned abated about dehydration. Blood pressures are a bit borderline, so Lasix will be discontinued today, but I will add low-dose spironolactone. i would refer another day to monitor him, as we adjust his medications, but he is adamant about leaving. -he does need anticoagulation therapy, but it appears he cannot fford the Eliquis. I will therefore start him on Coumadin today. We will have him continue the aspirin, until his INR is therapeutic. I will ask him to come in for a protime check in 2 days, and then we'll try to find a primary care physician who can sisal picker monitoring his Coumadin on Sunday. i had a long discussion with him about how important it is to monitor this closely, particularly during initiation. He has a better candidatefora direct acting anticoagulant, but I do not think he could afford it. -The patient is firmly reminded that he absolutely needs to keep follow-up appointments and not stop medications without a doctor telling him to do so. he seems agreeable to giving this a try. -digoxin and diltiazem were discontinued regarding bradycardia. -He will need cardiology follow-up. At his last hospitalization, it was suggested that he may need long-term anticoagulation therapy as well as an AICD due to a severely depressed ejection fraction. -he should have follow-up, preferably with Dr. Morris at [facility] since he did see him last year, for the same problem.. #2. CODE STATUS: The patient does not have a living will, but it sounds like he would accept initial resuscitation, but once no long-term life support. He would like his medical power of compliance attorney to be his [id number], Todd Hernadez. #3. DVT prophylaxis: Subcutaneous heparin. #4. Hyponatremia. -improved with diuresis. #5. Hypertension. well-managed on current medications. #6. Possible history of psoriasis. This does not appear to be currently active. #7. Hematologic. Mild lymphopenia, improving. elevated RDW. Consider B12 or folate deficiency. this actually looks better today also. #8. Reported history of ADD. #9.old records suggest history of diabetes but patient denies this, and blood glucoses are essentially normal. this visit has taken approximately 45 minutes of far today, to review test results,, review plan of care with the patient as well as with nursing staff, interview and examine him, and write orders, and have repeated discussions about various anticoagulation options. Discharge diagnosis: acute on chronic CHF,atrial flutter with rapid response, hypertension - Time Spent with Patient Total time spent providing and/or coordinating discharge services: Greater than 30 minutes Medical - DS: Exam - Constitutional Vitals: Vital Signs Temp Pulse Pulse Resp BP BP BP 08/25/16 10:22 119/81 08/25/16 07:49 127/92 08/25/16 07:24 96.7 F L 20 105/64 08/25/16 05:26 63 08/25/16 04:29 126/83 08/25/16 04:00 98.9 F 18 126/83 08/25/16 00:00 97.3 F 16 113/83 08/24/16 23:54 113/83 08/24/16 20:00 98.0 F 79 16 101/83 08/24/16 19:48 89 21 101/83 08/24/16 19:01 63 26 H 113/70 08/24/16 19:00 69 08/24/16 18:28 67 22 08/24/16 18:04 72 20 139/85 08/24/16 17:01 62 17 111/86 08/24/16 16:01 115 H 18 106/70 08/24/16 16:00 98.0 F 75 20 106/70 08/24/16 15:03 65 15 96/70 08/24/16 14:18 90 21 08/24/16 14:01 72 20 86/67 08/24/16 13:23 80 21 102/73 08/24/16 13:01 62 20 90/62 08/24/16 13:00 16 104/73 08/24/16 12:22 89 12 Pulse Ox 08/25/16 10:22 08/25/16 07:49 08/25/16 07:24 100 08/25/16 05:26 08/25/16 04:29 08/25/16 04:00 100 08/25/16 00:00 97 08/24/16 23:54 08/24/16 20:00 99 08/24/16 19:48 98 08/24/16 19:01 99 08/24/16 19:00 97 08/24/16 18:28 99 08/24/16 18:04 97 08/24/16 17:01 98 08/24/16 16:01 100 08/24/16 16:00 100 08/24/16 15:03 99 08/24/16 14:18 99 08/24/16 14:01 96 08/24/16 13:23 99 08/24/16 13:01 98 08/24/16 13:00 98 08/24/16 12:22 100 Intake and Output 08/24/16 08/25/16 08/25/16 21:59 05:59 13:59 Intake Total 800 / 800 795 / 795 240 / 240 Output Total 600 / 600 Balance 800 / 800 195 / 195 240 / 240 Intake: Oral 800 / 800 795 / 795 240 / 240 Output: Void Amount 600 / 600 Other: Meal Dinner Breakfast Percent of Meal Consumed 100% 100% # Voids 1 Weight 158 lb 9.6 oz Medical - DS: Data Labs on day of discharge: Labs from last 24 hours 08/25/16 08/25/16 03:43 03:43 WBC 5.7 RBC 4.36 L Hgb 14.7 Hct 41.3 MCV 94.8 MCH 33.8 MCHC 35.6 RDW 13.4 Plt Count 241 MPV 8.7 Gran % 67.0 Lymph % (Auto) 21.9 [place] % (Auto) 7.5 Eos % (Auto) 2.6 Baso % (Auto) 1.0 Gran # 3.9 Lymph # 1.2 L [place] # 0.4 Eos # 0.1 Baso # 0.1 Sodium 135 Potassium 4.2 Chloride 101 Carbon Dioxide 21 L Anion Gap 13.0 BUN 21 Creatinine 1.0 GFR Calculation 75 Glucose 76 Uric Acid 5.7 Calcium 8.9 Phosphorus 3.1 Magnesium 2.1 Total Bilirubin 1.3 H Direct Bilirubin 0.2 GGT 37 AST 17 ALT 19 Alkaline Phosphatase 62 Lactate Dehydrogenase 223 Total Protein 6.5 Albumin 3.9 Globulin 2.6 Albumin/Globulin Ratio 1.5 Triglycerides 63 August 25: -Patient has diuresed a total of about 2875 mL since admission. weight has dropped down from 165 pounds to 158 pounds. August 24: -Heart rate is varying from 30 to 124. blood pressures veering from 108-148/94 -104. O2 saturations 95-100% on room air. he is diuresed about 3600 mL since admission. -rDW remains elevated at 14.6. Lymphopenia is improved with an absolute lymphocyte count of 1200. anion gap remains elevated at 17 CO2 is low at 19. Total bilirubin high at 1.9 total cholesterol is 181, LDL cholesterol 120 HDL 48 echocardiogram from last night: Mild to moderate LV enlargement with concentric hypertrophy and severe global systolic dysfunction. moderate mitral regurgitation, moderate left atrial enlargement, elevated pulmonary wedge pressure with passive pulmonary hypertension. there is modest decline in LV function since March 2015. estimated LVEF is 20- 25%. august 23: RDW is elevated at 14.9, differential shows 79% granulocytes, absolute lymphocyte count is low at 1000 BNP is elevated at 9164 troponin was normal 2 TSH is mildly elevated at 3.67 MRSA nasal screen is negative. chest x-ray: Shows mild cardiomegaly Cristobal B line's. Small left-sided pleural effusion. Congestive heart failure is evident, though apparently less severe than in March 2015. eKG: Shows a rapid narrow complex tachycardia at a rate of about 150 presumably atrial flutter with 2 to one block. LVH is present. There is minor ST depression noted in leads V5 V6. April 11, 2015: Echocardiogram: Moderate aortic calcification. Mild left ventricular enlargement with severe global systolic dysfunction, mitral regurgitation, moderate left atrial enlargement elevated pulmonary wedge pressure moderate right atrial enlargement. Estimated ejection fraction 25%. Medical - DS: A/P - Patient/Caregiver Discharge Instructions Activity: increase activity as tolerated Diet: Low Sodium (2gm), Cardiac Additional Instructions: #1. Please take all prescriptions as directed. #2. We are starting you on a new blood thinner, warfarin, today. Please take one every evening until the dose is adjusted by her new primary care physician. -Please come to the lab to have the Coumadin level checked day after tomorrow, on Sunday. Please have the lab called the hospitalist camera control operator to adjust your dose. -Please have this level checked again on Sunday, and have your new primary care physician's office tell you whether to adjust the dosage. #3. Please see your new primary care physician this coming week to review your recent history and all of your new medications and to check your pulse and blood pressure. #4. Since you are taking a blood thinner, please monitor for any signs of bleeding or excess bruising, lightheadedness, shortness of breath or chest pain. Please report any of the symptoms to your physicians or come to the emergency room. #5. you presented with fluid in your lungs (heart failure) Please weigh yourself every morning after emptying her bladder, and keep a diary of your weights. If your weight increases by more than 2 pounds, please notify her physician. #6. Please continue to take aspirin, one a day, until your warfarin levelis in the therapeutic range. Once it is, you can stop the aspirin. #7. Please see your news library director in the next week, to review your medications, and see if they need further adjusting, regarding your heart arrhythmia. Prescriptions: Warfarin [Coumadin] 5 mg PO QHS #30 tablet Amiodarone HCl [Cordarone] 200 mg PO BIDCC #60 tablet Aspirin 81 mg CHEWED DAILY #1 Atorvastatin [Lipitor] 10 mg PO HS #30 tablet Lisinopril [Zestril] 2.5 mg PO DAILY #30 tablet Metoprolol Succinate [Toprol Xl] 25 mg PO DAILY #30 Spironolactone [Aldactone] 25 mg PO DAILY #30 tablet Other Amb Orders: Basic Metabolic Panel Time Frame: 3 Days, Facility: [facility] , Location: Laboratory Prothrombin Time INR Time Frame: 2 Days, Facility: [facility], Location: Laboratory - Problem Maintenance (1) Hyponatremia Status: Resolved (2) Atrial flutter Status: Acute (3) Hypertension Status: Chronic Qualifiers: Hypertension type: essential hypertension Qualified Code(s): I10 - Essential (primary) hypertension (4) CHF (congestive heart failure) Status: Acute Qualifiers: Congestive heart failure type: combined Congestive heart failure chronicity : acute Qualified Code(s): I50.41 - Acute combined systolic (congestive) and diastolic (congestive) heart failure (5) Heart failure with acute decompensation, type unknown Status: Acute - Follow up Plan Follow up with: Mariana Lacey DO [Physician] - 09/01/16 11:30 am (Nurse draw for your coumadin level on August 28 @ 10:[address] Lacey's office.) Ted Morris MD [Physician] - Disposition: Home, Self-Care Prognosis: Good Rehab Potential: Good Overall status at discharge: patient is progressing back to baseline Medical - DS: Qual - VTE Deep Vein Thrombosis/Pulmonary Embolism Present on Admission: No
[2016-08-25] MEDS ORDERED: WARFARIN 10 MG TABLET PO ONE (12:08)
[2016-08-26] MEDS ORDERED: WARFARIN 5 MG TABLET PO SCH (14:00)
== END 2016-08-25 15:55 | disposition home or self-care (01) | DRG 292 ==
LOC: ED 11:08 → ICU 15:15
PROVIDERS: ADMIT Internal Medicine; ATTEND Internal Medicine